=== PATIENT | female | born 1945 | race Caucasian/White ===

== ENCOUNTER 2020-01-06 15:39 | Outpatient (CLI) | payer MEDICARE, SELFPAY ==
--- NOTE | ~2020-01-06 | MM_ITS ---
EXAMINATION: MM screening eleno BI w tena HISTORY: Screening TECHNIQUE: Craniocaudal and mediolateral oblique 3-D tomosynthesis images were obtained and synthetic 2-D images were generated. CAD analysis was submitted and interpreted. COMPARISON: 10/11/2009 BREAST PARENCHYMAL COMPOSITION: The breasts are heterogeneously dense, which may obscure small masses . FINDINGS: There is a focal asymmetry superiorly in the right breast on MLO view. There is a region of pleomorphic calcifications in the upper outer quadrant of the left breast which are new. There is a second group of clustered pleomorphic calcifications in the region of the axillary tail overlying the pectoralis muscle on the MLO view. IMPRESSION: 1. New focal right breast asymmetry and clusters of calcifications in the left breast. 2. Additional mammographic views including spots, spot magnification views and exaggerated CC views a nd possible breast ultrasound are recommended. BI-RADS Category 0: Incomplete: Needs additional imaging evaluation. Reviewed, dictated and finalized at location A. IMPRESSION: 1. New focal right breast asymmetry and clusters of calcifications in the left breast. 2. Additional mammographic views including spots, spot magnification views and exaggerated CC views and possible breast ultrasound are recommended. BI-RADS Category 0: Incomplete: Needs additional imaging evaluation.
== END 2020-01-06 15:40 | disposition home or self-care (01) ==
LOC: ANHIMG 15:42
PROVIDERS: PCP Internal Medicine; Visit Provider Internal Medicine
DX: Z12.31 Encounter for screening mammogram for malignant neoplasm of breast (principal); R92.8 Other abnormal and inconclusive findings on diagnostic imaging of breast
CPT/HCPCS: 77063; 77067

== ENCOUNTER 2020-01-12 11:54 | Outpatient (CLI) | payer MEDICARE, SELFPAY ==
--- NOTE | ~2020-01-12 | MMUS_ITS ---
EXAMINATION: MM diagnostic mammo BI, US breast LT complete HISTORY: New focal right breast mammographic asymmetry and clusters of calcifications in left breast TECHNIQUE: Additional 3-D tomosynthesis images of both breasts were performed and synthetic 2-D image s were generated. Magnification views of left breast. CAD analysis was submitted and interpreted. Hig h resolution breast ultrasound was performed. COMPARISON: 01/06/2020 bilateral digital screening mammogram BREAST PARENCHYMAL COMPOSITION: There are scattered areas of fibroglandular density. FINDINGS: MAMMOGRAPHIC FINDINGS: The focal asymmetry reported in the right superior breast on MLO view of 01/06/2020 is not confirmed o n these supplemental right mammographic views. There are 2 indeterminate clusters of grouped microcalcifications in the upper outer quadrant of the left breast which are suspicious. Left breast ultrasound examination correlation was performed. No suspicious mass or architectural distortion is noted otherwise. ULTRASOUND: At 2:00 7 cm from the nipple there are two contiguous approximately 4.5 and 3.5 mm masses with irregu lar margins. Ultrasound guided biopsy is recommended. IMPRESSION: 1. Two contiguous 4.5 and 3.5 mm left breast 2:00 masses are noted. 2. Two suspicious clusters of grouped microcalcifications in the upper outer quadrant of the left jaziel ast 3. Ultrasound guided biopsy of the contiguous masses at left breast 2:00 is recommended. Post-biopsy mammogram should be performed, and stereotactic biopsy of the two clusters of microcalcifications sh ould be performed (although the ultrasound guided biopsy may be sufficient for one of the clusters of microcalcifications if the ultrasound biopsy marker is noted in that cluster of microcalcifications) . BI-RADS category 4, suspicious findings The report and ultrasound-guided and stereotactically guided biopsy recommendations were left on the voicemail at [phone] on 01/13/2020 at 1135 hours Reviewed, dictated and finalized at location A. IMPRESSION: 1. Two contiguous 4.5 and 3.5 mm left breast 2:00 masses are noted. 2. Two suspicious clusters of grouped microcalcifications in the upper outer qu adrant of the left breast 3. Ultrasound guided biopsy of the contiguous masses at left breast 2:00 is rec ommended. Post-biopsy mammogram should be performed, and stereotactic biopsy o f the two clusters of microcalcifications should be performed (although the ult rasound guided biopsy may be sufficient for one of the clusters of microcalcifi cations if the ultrasound biopsy marker is noted in that cluster of microcalcif ications). BI-RADS category 4, suspicious findings The report and ultrasound-guided and stereotactically guided biopsy recommendat ions were left on the voicemail at [phone] on 01/13/2020 at 1135 hours IMPRESSION: 1. Two contiguous 4.5 and 3.5 mm left breast 2:00 masses are noted. 2. Two suspicious clusters of grouped microcalcifications in the upper outer qu adrant of the left breast 3. Ultrasound guided biopsy of the contiguous masses at left breast 2:00 is rec ommended. Post-biopsy mammogram should be performed, and stereotactic biopsy o f the two clusters of microcalcifications should be performed (although the ult rasound guided biopsy may be sufficient for one of the clusters of microcalcifi cations if the ultrasound biopsy marker is noted in that cluster of microcalcif ications). BI-RADS category 4, suspicious findings The report and ultrasound-guided and stereotactically guided biopsy recommendat ions were left on the voicemail at [phone] on 01/13/2020 at 1135 hours
== END 2020-01-12 11:55 | disposition home or self-care (01) ==
LOC: ANHIMG 11:57
PROVIDERS: PCP Internal Medicine; Visit Provider Internal Medicine
DX: R92.8 Other abnormal and inconclusive findings on diagnostic imaging of breast (principal)
CPT/HCPCS: 76641; 77066

== ENCOUNTER 2021-12-21 10:42 | Emergency (ER) | payer MEDICARE, SELFPAY ==
--- NOTE | ~2021-12-21 | XR_ITS ---
XR hip LT 2V w AP pelvis 12/21/2021 11:12 Indication: Left hip pain Procedure: AP pelvis and 2 views left hip Comparison: No prior studies for comparison. Findings: No fracture, subluxation or dislocation. Pelvic rings are intact. Sacral foramen are symmet justo. There is mild osteoarthritis of the hips. No significant soft tissue abnormality. Impression: 1: No acute fracture. Reviewed, dictated and finalized at location A. Impression: 1: No acute fracture.
[2021-12-21 10:50] VITALS: BP 138/65; PULSE 76; RESP 20; TEMP 36.8; O2SAT 99
--- NOTE | 2021-12-21 10:57 | ED.LOWEXIN ---
HPI - Extremity Injury (Lower) General Chief Complaint: Extremity Problem,Nontraumatic Stated Complaint: left hip pain Time Seen by Provider: 12/21/21 10:58 History of Present Illness HPI Narrative: Carito Odom is a 76 yo female with PMH anxiety, high cholesterol, HTN, chronic pain, comes with complaints of left hip pain that started a few months ago and has gotten worse and is starting to radiate down into her leg Patient has chronic pain from a fall on her buttocks a couple years ago; she states she has new primary care physician that starts in February Dr. Brandt, states she is currently taking her high blood pressure and cholesterol medication and using gabapentin for pain, but this pain is on top of her chronic back pain Related Data Home Medications Medication Instructions Recorded Confirmed alprazolam 1 mg tablet 1 mg DIRECTED 12/21/21 12/21/21 atorvastatin 40 mg tablet 40 mg DIRECTED 12/21/21 12/21/21 gabapentin 300 mg capsule 300 mg PO DIRECTED 12/21/21 12/21/21 losartan 50 mg-hydrochlorothiazide 1 tablet DIRECTED 12/21/21 12/21/21 12.5 mg tablet Allergies Allergy/AdvReac Type Severity Reaction Status Date / Time Penicillins Allergy Unknown Verified 08/28/09 14:12 Review of Systems Review of Systems: CONSTITUTIONAL: Denies fever, chills, sweats. EYES: Denies visual changes, redness, discharge. ENT: Denies rhinorrhea, congestion, sore throat, otalgia. CARDIOVASCULAR: Denies chest pain, palpitations, edema. RESPIRATORY: Denies dyspnea, wheezing, cough GASTROINTESTINAL: Denies abdominal pain, nausea, vomiting, diarrhea. GENITOURINARY: Denies dysuria, hematuria, abnormal discharge SKIN: Denies rash or itching. NEUROLOGIC: Denies numbness, or focal weakness. PSYCHIATRIC: Denies anxiety or depression. Left hip pain that radiates into leg that has been going on for months PMFSH Past Medical History Medical History Anxiety Chronic back pain High cholesterol Hypertension Social History Social History (Updated 12/21/21 @ 11:06 by Karma Poon CNP) Smoking packs per day: 0.5 Smoking cigarettes per day: 10.0 Smoking status: Current every day smoker Tobacco type: cigarettes Alcohol intake: former Comments At time of signature, I agree with nursing past medical, surgical, social and family history. There is no relevant family history pertinent to the presenting complaint. Exam Narrative: GENERAL: This is a well-nourished, thin frail patient, in mild distress. HEAD: normocephalic, atraumatic. EYES:. Sclera clear/white. Vision is grossly intact. EARS: External ears normal, Hearing grossly intact. NOSE: External nose normal without nasal discharge, nares without redness, no rhinorrhea. THROAT: Mucous membranes moist NECK: Neck supple, non-tender CARDIOVASCULAR: Regular rate and rhythm without murmurs, gallops, or rubs. RESPIRATORY: Diminished to auscultation. Breath sounds equal bilaterally. No wheezes, rales, or rhonchi. GASTROINTESTINAL: Not done SKIN: warm, intact with no suspicious lesions or rash, good texture and turgor. NEURO: awake, alert, and oriented to person, place and time. There were no obvious focal neurologic abnormalities. Steady gait EXTREMITIES: Normal range of motion. Indicates pain in her left hip radiates into her leg, demonstrates good range of motion BACK: Nontender without deformity Course Course Emergency Course: Patient here with complaints of hip pain that radiates into the leg Patient has underlying chronic back pain that she is being treated for with gabapentin X-ray of left hip shows no acute fracture subluxation or dislocation is intact, sacral forearm ; mild osteoarthritis of hips Given low-dose muscle relaxant and some steroids Level of Care: Express Care Visit Vital Signs Vital signs: Vital Signs Temperature 98.3 F 12/21/21 10:50 Pulse Rate 76 12/21/21 10:50 Respiratory
== END 2021-12-21 11:55 | disposition home or self-care (01) ==
PROVIDERS: Emergency Provider Nurse Practitioner
DX: M25.552 Pain in left hip (principal); F17.210 Nicotine dependence, cigarettes, uncomplicated; E78.00 Pure hypercholesterolemia, unspecified; I10 Essential (primary) hypertension; F41.9 Anxiety disorder, unspecified
CPT/HCPCS: 73502; 99213; G0463

== ENCOUNTER 2022-02-17 22:31 | Inpatient (IN) | payer MEDICARE, MEDICAID, SELFPAY ==
[2022-02-17] VITALS (11 sets, daily range): BP systolic 112–159; BP diastolic 69–87; PULSE 56–87; RESP 19–24; TEMP 36.6; O2SAT 92–99
--- NOTE | ~2022-02-17 | XR_ITS ---
EXAMINATION: XR chest 2V DATE: 02/20/2022 10:27 INDICATION: Cough. Decreased left lung sounds. TECHNIQUE: Frontal and lateral views of the chest were obtained. COMPARISON: Chest 2 views 02/17/2022 FINDINGS: There is blunting of posterior left costophrenic angle. There is mild scarring at the lung apices. No pneumothorax. The heart size is normal. There is mild chronic anterior wedging of multiple midthoracic vertebral bodies. IMPRESSION: 1. Stable blunting of left posterior costophrenic angle, consistent with scarring versus tiny pleural effusion. Reviewed, dictated and finalized at location A. IMPRESSION: 1. Stable blunting of left posterior costophrenic angle, consistent with scarri ng versus tiny pleural effusion.
--- NOTE | ~2022-02-17 | XR_ITS ---
EXAMINATION: XR chest 2V Exam Date/Time: 02/17/2022 23:00 CDT HISTORY: cough, COPD Comparison: 08/26/2018. RESULT: Lines, tubes, and devices: None. Lungs and pleura: Similar mild bilateral peripheral lower lung reticulonodular opacities. Emphysemat ous change. Cardiomediastinal silhouette: Stable. Other: No acute osseous or upper abdominal finding. IMPRESSION: Pulmonary opacities may represent mild bronchiolitis, as can be seen with atypical infection, asthma, aspiration, and small airways disease. Reviewed, dictated and finalized at location K. IMPRESSION: Pulmonary opacities may represent mild bronchiolitis, as can be seen with atypi jerry infection, asthma, aspiration, and small airways disease.
--- NOTE | 2022-02-17 22:35 | ECG_ITS ---
Measurements Intervals [place] Rate: 77 P: 66 MI: 154 QRS: 44 QRSD: 80 T: 69 QT: 406 QTc: 459 Interpretive Statements SINUS RHYTHM BASELINE ARTIFACT- I, II, III, AVR, AVL, V5-V6 NORMAL ECG NO PREVIOUS ECG AVAILABLE FOR COMPARISON Electronically Signed On 02-18-2022 8:30:07 CDT by Fazal Quintero D.O.
--- NOTE | 2022-02-17 22:57 | PC.NURSE ---
O2 sat down to 92% and labored breathing with just getting from W/C onto stretcher. placed on O2@2L for comfort until Nebs can be given. ERP made aware
[2022-02-17 23:08] LABS: Basophils Absolute Auto 0.1 K/mm3 (0.0-0.1); Eosinophils Absolute Auto 1.2 K/mm3 (0-0.3); Hematocrit 39.3 % (37.0-47.0); Hemoglobin 12.8 g/dL (12.0-15.0); Immature Granulocyte Absolute 0.02 K/mm3 (0.00-0.031); Immature Granulocyte Percent A 0.3 % (0-0.5); Lymphocytes Percent Auto 31.1 % (18.3-44.2); Mean Corpuscular HGB Conc 32.6 g/dl (32-36); Mean Corpuscular Hemoglobin 33.2 pg (26-34); Mean Corpuscular Volume 102.1 fl (80-100); Monocytes Absolute Auto 0.9 K/mm3 (0.1-0.6); Monocytes Percent Auto 12.9 % (2.6-8.5); Neutrophils Absolute Auto 2.5 K/mm3 (1.3-6.7); Neutrophils Percent Auto 36.7 % (45.5-73.1); Platelet Count Result 224 k/mm3 (150-375); Red Blood Count 3.85 M/mm3 (4.2-5.4); Red Cell Distribution Width 14.4 % (11.5-14.5); White Blood Count 6.8 K/mm3 (4.5-10.0)
[2022-02-17 23:20] LABS: Alanine Aminotransferase 18 U/L (6-35); Alkaline Phosphatase 80 U/L (38-126); Anion Gap 6 mmol/L (8-16); Aspartate Amino Transferase 27 U/L (14-36); Bilirubin,Total 0.5 mg/dL (0.2-1.3); Blood Urea Nitrogen 15 mg/dL (7-17); Calcium 9.2 mg/dL (8.4-10.2); Carbon Dioxide 25 mmol/L (22-30); Chloride 106 mmol/L (98-107); Estimated CRCL calculation 37 ml/min; Estimated Glomerular Filt Rate > 60; Glucose 94 mg/dL (65-110); Potassium 3.7 mmol/L (3.4-5.0); Sodium 137 mmol/L (137-145)
[2022-02-17] MEDS: IPRATROPIUM BR 0.02% INH SOLN 0.5 MG/2.5 ML VIAL 1.5 MG INHALATION (23:34)
[2022-02-17] MEDS: ALBUTEROL SULFATE NEB 2.5 MG/3 ML INH 15 MG INHALATION (23:35)
[2022-02-17 23:46] LABS: Base Excess ABG -0.3 mEq/l (+/-2.0); Carboxyhemoglobin 0.1 % THb (0-2.0); Fractional Inspired Oxygen 21 %; Methemoglobin ABG 0.3 %THb (0-1.5); Oxyhemoglobin 97.7 % THb (90.0-100.0); PCO2 ABG 43.7 mmHg (35.0-45.0); PO2 ABG 156.1 mmHg (80.0-100.0); Reduced Hemoglobin 1.9 %THb (0-5.0); Total Hemoglobin 12.9 g/dL (12.0-18.0); pH ABG 7.376 (7.350-7.450)
[2022-02-17 23:51] LABS: Device ROOM AIR; Modified Allen's Test Pass; Site Drawn RIGHT RADIAL
[2022-02-17] MEDS: methylPREDNISolone SOD SUCC 125 MG VIAL IV PUSH (23:52)
[2022-02-18] VITALS (18 sets, daily range): BP systolic 106–132; BP diastolic 43–68; PULSE 52–95; RESP 15–21; TEMP 35.6–36.7; O2SAT 88–100; BMI 19.3
--- NOTE | 2022-02-18 00:12 | ED.SOB ---
HPI - SOB/Dyspnea General Chief Complaint: Shortness of Breath/Dyspnea Stated Complaint: SOB, lethargy Time Seen by Provider: 02/17/22 22:57 History of Present Illness HPI Narrative: Patient is a 77-year-old female who presents ER with new cough. Daughters became concerned. Cough newly productive and worsened over the last 2 days. No fevers or chills or sweats. Patient is acting more fatigued and sleeping more during the day. She has COPD but does not take any medications. She is not oxygen dependent. No chest pain or chest pressure. No recent falls. Family has noticed increased wheezing. Related Data Home Medications Medication Instructions Recorded Confirmed alprazolam 1 mg tablet 1 mg PO HS 12/21/21 02/18/22 atorvastatin 40 mg tablet 40 mg PO HS 12/21/21 02/18/22 gabapentin 300 mg capsule 600 mg PO HS 12/21/21 02/18/22 losartan 50 mg-hydrochlorothiazide 1 tablet PO HS 12/21/21 02/18/22 12.5 mg tablet escitalopram oxalate 5 mg tablet 5 mg PO HS 02/18/22 02/18/22 Allergies Allergy/AdvReac Type Severity Reaction Status Date / Time Penicillins Allergy Unknown Verified 08/28/09 14:12 Review of Systems Review of Systems: All systems reviewed & are unremarkable except as noted in HPI and below Constitutional: Constitutional: Denies chills, Reports fatigue and Denies fever(s) ENT: Reports nasal congestion and Denies sore throat Cardiovascular: Cardiovascular: Denies chest pain, Denies rapid heart rate and Denies radiating jaw, neck or arm pain Respiratory: Respiratory: Reports cough, Denies dyspnea and Reports wheezing Gastrointestinal: Gastrointestinal: Denies abdominal pain, Denies nausea and Denies vomiting Genitourinary: Genitourinary: Denies nocturia and Denies dysuria [facility] Past Medical History Medical History Anxiety Chronic back pain High cholesterol Hypertension Social History Social History (Updated 12/21/21 @ 11:06 by Karma Poon CNP) Smoking packs per day: 0.5 Smoking cigarettes per day: 10.0 Years smoked: 60 Smoking pack-years: 30.00 Smoking status: Current every day smoker Tobacco type: cigarettes Alcohol intake: current Substance use: never Other substance usage details: 1/m Spiritual care concerns: No Exam Narrative: GENERAL: Well-appearing, well-nourished, and in no acute distress. HEAD: Normocephalic, atraumatic. EYES: PERRL and EOMI. CHEST: Diffuse wheezing/rhonchi with expiration. No respiratory distress. HEART: Regular rate and rhythm. Normal peripheral pulses. ABDOMEN: Soft, nontender, nondistended. EXTREMITIES: Normal range of motion. No edema. SKIN: Warm, dry, no rash. NEURO: Alert and oriented x3. PSYCH: Normal mood and affect. Course Course Emergency Course: Patient hypoxic at 88% after nebulizer. Still has some scattered coarse lung sounds. Patient requires 4 L of nasal cannula oxygen to get up into the mid 90s. We will plan admission for observation. We will add on a COVID swab. Vital Signs Vital signs: Vital Signs Temperature 97.9 F 02/17/22 22:34 Pulse Rate 74 02/17/22 22:34 Respiratory Rate 22 H 02/17/22 22:34 Blood Pressure 112/87 02/17/22 22:34 Pulse Oximetry 96 02/17/22 22:34 Oxygen Delivery Room Air 02/17/22 22:34 Temperature 96.0 F L 02/18/22 05:57 Pulse Rate 63 02/18/22 05:57 Respiratory Rate 18 02/18/22 05:57 Blood Pressure 120/43 L 02/18/22 05:57 Pulse Oximetry 100 02/18/22 05:57 Oxygen Delivery Nasal Cannula 02/18/22 02:54 Oxygen Flow Rate 4 02/18/22 02:54 MDM - SOB/Dyspnea Lab Data Result diagrams: 02/17/22 22:59 02/17/22 22:59 Labs: Lab Results 02/17/22 02/17/22 02/17/22 Range/Units 22:59 22:59 23:27 WBC 6.8 (4.5-10.0) K/mm3 RBC 3.85 L (4.2-5.4) M/mm3 Hgb 12.8 (12.0-15.0) g/dL Hct 39.3 (37.0-47.0) % MCV 102.1 H (80-100) fl MCH 33.2 (26-
[2022-02-18 03:39] LABS: SARS-CoV-2 RNA PCR Negative
--- NOTE | 2022-02-18 04:20 | PC.NURSE ---
Called lab to add on FLU PCR, spoke with Marli, she stated she will add it on.
[2022-02-18 04:21] LABS: Influenza A QL RT-PCR Negative (Negative); Influenza B QL RT-PCR Negative (Negative)
--- NOTE | 2022-02-18 05:18 | ADMGEN ---
This patient, Carito Odom, was admitted to [facility] Surg Room 321-02. Patient/family oriented to hospital policies and general routines including ID bracelet, bed and alarms, visiting hours, pain management, procedures, bathroom and other care routines, personal items, smoking policy, room service/diet, and visiting hours. Information on how to activate the Rapid Response Team has been discussed. Patient/Family are encouraged to report perceived risks to care and to ask questions if they do not understand what they are told or what they should do.
[2022-02-18] MEDS: methylPREDNISolone SOD SUCC 125 MG VIAL 60 MG IV PUSH ×3 (05:49→17:58)
[2022-02-18 07:39] LABS: Hematocrit 37.2 % (37.0-47.0); Hemoglobin 12.1 g/dL (12.0-15.0); Mean Corpuscular HGB Conc 32.5 g/dl (32-36); Mean Corpuscular Hemoglobin 33.3 pg (26-34); Mean Corpuscular Volume 102.5 fl (80-100); Mean Platelet Volume 10.2 fl (7.4-10.4); Platelet Count Result 209 k/mm3 (150-375); Red Blood Count 3.63 M/mm3 (4.2-5.4); Red Cell Distribution Width 14.1 % (11.5-14.5); White Blood Count 6.5 K/mm3 (4.5-10.0)
[2022-02-18 07:49] LABS: Anion Gap 8 mmol/L (8-16); Blood Urea Nitrogen 16 mg/dL (7-17); Calcium 9.2 mg/dL (8.4-10.2); Carbon Dioxide 26 mmol/L (22-30); Chloride 103 mmol/L (98-107); Estimated CRCL calculation 33 ml/min; Estimated Glomerular Filt Rate 54; Glucose 186 mg/dL (65-110); Potassium 3.5 mmol/L (3.4-5.0); Sodium 137 mmol/L (137-145)
--- NOTE | 2022-02-18 10:29 | PCRCNOTE ---
Window of time for administration has passed. See next scheduled administration.
--- NOTE | 2022-02-18 11:36 | PM.IMHP ---
H&P: HPI History of Present Illness Date/Time: 02/18/22 11:36 Chief Complaint: shortness of breath Narrative: date of service: 02/18/2022 Carito Odom is a 77-year-old female with a history of anxiety, hypertension, hyperlipidemia, breast cancer s/p chemotherapy, radiation, and mastectomy with associated left upper extremity neuropathy, COPD not maintained on any inhalers, and tobacco abuse who presented to the emergency department on 02/18/2022 due to shortness of breath. The patient states that for the past 3 days she has had a pretty bad cough that she describes as hacking in nature. She has not had sputum production. Yesterday she felt extremely fatigued. She fell asleep and her daughter's who are visiting from out of town noticed that she was very short of breath while she was sleeping and they told her she was rattling. The patient states she did not feel that bad and she would not have come for evaluation, however her daughter's convinced her to seek medical care. The patient denies shortness of breath, GARCIA, conversational dyspnea. She has no difficulty completing her daily tasks, but admits that if she were to walk up a flight of stairs this would cause some shortness of breath. She denies any recent cold or flu symptoms. Specifically denies nasal congestion, sore throat, fever, chills, body aches. She does endorse intermittent rhinorrhea for several months. Denies any recent sick contacts. She completed COVID vaccine with 2 boosters and influenza vaccine. States that she does not use any inhalers and does not even have a rescue inhaler. On presentation to the ED, she was mildly tachypneic with additional vital signs stable, she was afebrile, CBC and BMP unremarkable, COVID and influenza vaccine negative, and chest x-ray showed pulmonary opacities which may represent mild bronchiolitis, asthma, aspiration, small airway disease. She is being admitted to the hospitalist service. supervising physician for this history and physical is Dr. Jair Ocasio. Review of Systems Review of Systems: All systems reviewed with pertinent positives and negatives as per HPI. Patient additionally denies abdominal pain, nausea, vomiting, dizziness, lightheadedness, weight loss, dysuria, hematuria, melena, hematochezia, weakness. [facility] Past Medical History Medical History (Updated 02/18/22 @ 11:50 by Estee Jon PA-C) Anxiety Breast cancer Chronic back pain COPD (chronic obstructive pulmonary disease) High cholesterol Hypertension Neuropathy Tobacco abuse Surgical History Surgical History (Updated 02/18/22 @ 11:48 by Estee Jon PA-C) History of left mastectomy Family History Family History Mother Breast cancer Father Diabetes mellitus Social History Social History (Updated 02/18/22 @ 11:50 by Estee Jon PA-C) Social History: Lives at home with Independent with ADLs Retired No current PCP - Prior PCP (Dr. Chavez) retired in November and has not established elsewhere yet POA: Rhona (daughter) Code: full Smoking packs per day: 0.5 Smoking cigarettes per day: 10.0 Years smoked: 60 Smoking pack-years: 30.00 Smoking status: Current every day smoker Tobacco type: cigarettes Alcohol intake: never Substance use: never Spiritual care concerns: No Meds Home Medications and Allergies Home Medications Medication Instructions Recorded Confirmed Type alprazolam 1 mg tablet 1 mg PO HS 12/21/21 02/18/22 History atorvastatin 40 mg tablet 40 mg PO HS 12/21/21 02/18/22 History gabapentin 300 mg capsule 600 mg PO HS 12/21/21 02/18/22 History losartan 50 mg-hydrochlorothiazide 1 tablet PO HS 12/21/21 02/18/22 History 12.5 mg tablet escitalopram oxalate 5 mg tablet 5 mg PO HS 02/18/22 02/18/22 History Allergies Allergy/AdvReac Type Severity Reaction Status Date / Time Penicillins Allergy Unkn
[2022-02-18] MEDS: IPRATROPIUM BR 0.02% INH SOLN 0.5 MG/2.5 ML VIAL INHALATION ×2 (15:17→20:15)
[2022-02-18] MEDS: ALBUTEROL SULFATE NEB 2.5 MG/3 ML INH 5 MG INHALATION ×2 (15:17→20:15)
[2022-02-18] MEDS: ALPRAZolam (*CRX) 0.5 MG TABLET 1 MG PO (21:28)
[2022-02-18] MEDS: GABAPENTIN 300 MG CAPSULE 600 MG PO (21:29)
[2022-02-18] MEDS: ATORVASTATIN 40 MG TABLET PO (21:29)
[2022-02-18] MEDS: guaiFENesin 12 HR 600 MG TABCR PO (21:29)
[2022-02-19] VITALS (20 sets, daily range): BP systolic 95–120; BP diastolic 41–54; PULSE 63–88; RESP 13–20; TEMP 36.3–37; O2SAT 88–100
[2022-02-19] MEDS: IPRATROPIUM BR 0.02% INH SOLN 0.5 MG/2.5 ML VIAL INHALATION ×4 (02:25→20:00)
[2022-02-19] MEDS: ALBUTEROL SULFATE NEB 2.5 MG/3 ML INH 5 MG INHALATION ×4 (02:25→20:00)
[2022-02-19] MEDS: methylPREDNISolone SOD SUCC 125 MG VIAL 60 MG IV PUSH ×2 (05:38)
[2022-02-19 05:56] LABS: Hematocrit 31.9 % (37.0-47.0); Hemoglobin 10.5 g/dL (12.0-15.0); Mean Corpuscular HGB Conc 32.9 g/dl (32-36); Mean Corpuscular Hemoglobin 33.1 pg (26-34); Mean Corpuscular Volume 100.6 fl (80-100); Mean Platelet Volume 10.6 fl (7.4-10.4); Platelet Count Result 191 k/mm3 (150-375); Red Blood Count 3.17 M/mm3 (4.2-5.4); Red Cell Distribution Width 13.6 % (11.5-14.5); White Blood Count 10.9 K/mm3 (4.5-10.0)
[2022-02-19 06:04] LABS: Hemoglobin A1C 5.3 % (<5.7)
[2022-02-19 06:23] LABS: Anion Gap 8 mmol/L (8-16); Blood Urea Nitrogen 26 mg/dL (7-17); Calcium 8.6 mg/dL (8.4-10.2); Carbon Dioxide 22 mmol/L (22-30); Chloride 96 mmol/L (98-107); Estimated CRCL calculation 36 ml/min; Estimated Glomerular Filt Rate > 60; Glucose 157 mg/dL (65-110); Potassium 3.7 mmol/L (3.4-5.0); Sodium 126 mmol/L (137-145)
[2022-02-19] MEDS: ENOXAPARIN 40 MG/0.4 ML SYRINGE SUB-Q (08:55)
[2022-02-19] MEDS: guaiFENesin 12 HR 600 MG TABCR PO ×2 (08:55→21:26)
--- NOTE | 2022-02-19 10:45 | P.PNIM_ITS ---
Progress Note: A&P Assessment and Plan (1) COPD exacerbation: Code(s): J44.1 - Chronic obstructive pulmonary disease with (acute) exacerbation Status: Acute Assessment and Plan: patient with untreated COPD presented with wheezing, consistent with COPD exacerbation * continue IV Solu-Medrol, wean to 40 mg q8h * albuterol and ipratropium nebs q6h * continue IV azithromycin in light of increased sputum production * supportive care. begin expectorants and incentive spirometry * she will need outpatient follow-up for treatment of COPD. May benefit from pulmonology referral. * will need scheduled long-acting inhalers (2) Hypoxia: Code(s): R09.02 - Hypoxemia Status: Acute Assessment and Plan: patient hypoxic this morning down to 88%. secondary to above * initially required 4 L supplemental oxygen * O2 requirement is improving, currently on 1 L O2 and maintaining adequate O2 sats * wean oxygen as tolerated and monitor O2 sats closely (3) Abnormal CXR: Code(s): R93.89 - Abnormal findings on diagnostic imaging of other specified body structures Status: Acute Assessment and Plan: CXR on presentation showed pulmonary opacities which may represent mild bronchiolitis which may be due to atypical infection vs asthma vs aspiration vs small airway disease * patient is afebrile, no leukocytosis prior to starting IV steroids, no additional clinical signs to suggest acute infection. aspiration is unlikely. * patient clinically improving. May consider repeat CXR as an outpatient to reassess findings (4) Hypertension: Code(s): I10 - Essential (primary) hypertension Status: Acute Assessment and Plan: blood pressure has been running low. last BP 107/46 * holding home losartan -hydrochlorothiazide at this time to avoid hypotension * check orthostatic vital signs * patient asymptomatic * monitor BP trends closely (5) Anxiety: Code(s): F41.9 - Anxiety disorder, unspecified Status: Acute Assessment and Plan: no acute issues at this time * continue alprazolam at night (6) Tobacco abuse: Code(s): Z72.0 - Tobacco use Status: Acute Assessment and Plan: patient smokes a half pack a day * declined need for nicotine patch * educated on smoking cessation. continue to reinforce (7) Hyponatremia: Code(s): E87.1 - Hypo-osmolality and hyponatremia Status: Acute Assessment and Plan: sodium declined to 126 today * implement fluid restriction diet * recheck sodium this afternoon and continue to follow trend * obtain urine electrolytes Subjective Date/time seen: 02/19/22 10:45 Interval history: Date of service: 02/19/2022 Carito Odom is a 77-year-old female with a history of anxiety, hypertension, hyperlipidemia, breast cancer s/p chemotherapy, radiation, and mastectomy with associated left upper extremity neuropathy, COPD not maintained on any inhalers, and tobacco abuse? who is seen in follow-up for COPD exacerbation she feels better today. She states her breathing is a lot better. Her cough has improved and she denies sputum production. She denies wheezing. She states she is feeling nearly back to her usual state of health. She has been up and ambulating around the room without difficulty. Denies dizziness, lightheadedness, weakness. No GARCIA. Denies urinary symptoms. Reports last bowel movement was 2 days ago. Reports appetite is fair. Denies excess fl
--- NOTE | 2022-02-19 10:45 | PM.IMPN ---
Progress Note: A&P Assessment and Plan (1) COPD exacerbation: Code(s): J44.1 - Chronic obstructive pulmonary disease with (acute) exacerbation Status: Acute Assessment and Plan: patient with untreated COPD presented with wheezing, consistent with COPD exacerbation continue IV Solu-Medrol, wean to 40 mg q8h albuterol and ipratropium nebs q6h continue IV azithromycin in light of increased sputum production supportive care. begin expectorants and incentive spirometry she will need outpatient follow-up for treatment of COPD. May benefit from pulmonology referral. will need scheduled long-acting inhalers (2) Hypoxia: Code(s): R09.02 - Hypoxemia Status: Acute Assessment and Plan: patient hypoxic this morning down to 88%. secondary to above initially required 4 L supplemental oxygen O2 requirement is improving, currently on 1 L O2 and maintaining adequate O2 sats wean oxygen as tolerated and monitor O2 sats closely (3) Abnormal CXR: Code(s): R93.89 - Abnormal findings on diagnostic imaging of other specified body structures Status: Acute Assessment and Plan: CXR on presentation showed pulmonary opacities which may represent mild bronchiolitis which may be due to atypical infection vs asthma vs aspiration vs small airway disease patient is afebrile, no leukocytosis prior to starting IV steroids, no additional clinical signs to suggest acute infection. aspiration is unlikely. patient clinically improving. May consider repeat CXR as an outpatient to reassess findings (4) Hypertension: Code(s): I10 - Essential (primary) hypertension Status: Acute Assessment and Plan: blood pressure has been running low. last BP 107/46 holding home losartan -hydrochlorothiazide at this time to avoid hypotension check orthostatic vital signs patient asymptomatic monitor BP trends closely (5) Anxiety: Code(s): F41.9 - Anxiety disorder, unspecified Status: Acute Assessment and Plan: no acute issues at this time continue alprazolam at night (6) Tobacco abuse: Code(s): Z72.0 - Tobacco use Status: Acute Assessment and Plan: patient smokes a half pack a day declined need for nicotine patch educated on smoking cessation. continue to reinforce (7) Hyponatremia: Code(s): E87.1 - Hypo-osmolality and hyponatremia Status: Acute Assessment and Plan: sodium declined to 126 today implement fluid restriction diet recheck sodium this afternoon and continue to follow trend obtain urine electrolytes Subjective Date/time seen: 02/19/22 10:45 Interval history: Date of service: 02/19/2022 Carito Odom is a 77-year-old female with a history of anxiety, hypertension, hyperlipidemia, breast cancer s/p chemotherapy, radiation, and mastectomy with associated left upper extremity neuropathy, COPD not maintained on any inhalers, and tobacco abuse? who is seen in follow-up for COPD exacerbation she feels better today. She states her breathing is a lot better. Her cough has improved and she denies sputum production. She denies wheezing. She states she is feeling nearly back to her usual state of health. She has been up and ambulating around the room without difficulty. Denies dizziness, lightheadedness, weakness. No GARCIA. Denies urinary symptoms. Reports last bowel movement was 2 days ago. Reports appetite is fair. Denies excess fluid intake. Reports drinking 1 cup of coffee and 1 cup of water today. Review of Systems Review of Systems: All systems reviewed & are unremarkable except as noted in HPI and below Exam Narrative: General: thin, well-appearing 77-year-old female, sitting up in bed, comfortable, NARD Neuro: awake, alert and oriented x4, speech clear, no focal neuro deficits noted HEENMT: normocephalic, atraumatic, EOMI, sclerae anicteric
[2022-02-19 13:29] LABS: Sodium 123 mmol/L (137-145)
[2022-02-19] MEDS: methylPREDNISolone SOD SUCC 40 MG VIAL IV PUSH ×2 (14:27→21:26)
[2022-02-19 16:13] LABS: Creatinine Urine 143.4 mg/dL
[2022-02-19 16:17] LABS: Sodium Urine Random < 5 meq/L
[2022-02-19] MEDS: SODIUM CHLORIDE 0.9% IV 250 ML 100 ML IV CONT (16:30)
[2022-02-19] MEDS: SODIUM CHLORIDE 0.9% IV 1,000 ML 75 ML IV CONT (18:54)
[2022-02-19 19:21] LABS: Sodium 126 mmol/L (137-145)
[2022-02-19] MEDS: ATORVASTATIN 40 MG TABLET PO (21:26)
[2022-02-19] MEDS: ALPRAZolam (*CRX) 0.5 MG TABLET 1 MG PO (21:26)
[2022-02-19] MEDS: GABAPENTIN 300 MG CAPSULE 600 MG PO (21:26)
[2022-02-20] VITALS (13 sets, daily range): BP systolic 114–120; BP diastolic 43–49; PULSE 71–80; RESP 14–18; TEMP 36.6–37.1; O2SAT 92–94
[2022-02-20 00:05] LABS: Sodium 123 mmol/L (137-145)
[2022-02-20] MEDS: IPRATROPIUM BR 0.02% INH SOLN 0.5 MG/2.5 ML VIAL INHALATION ×4 (02:02→20:54)
[2022-02-20] MEDS: ALBUTEROL SULFATE NEB 2.5 MG/3 ML INH 5 MG INHALATION ×4 (02:02→20:54)
[2022-02-20] MEDS: methylPREDNISolone SOD SUCC 40 MG VIAL IV PUSH ×3 (05:41→22:39)
[2022-02-20 05:58] LABS: Basophils Percent Auto 0.1 % (0.2-1.2); Hematocrit 29.5 % (37.0-47.0); Hemoglobin 10.1 g/dL (12.0-15.0); Immature Granulocyte Percent A 0.7 % (0-0.5); Lymphocytes Absolute Auto 0.62 K/mm3 (0.9-3.2); Lymphocytes Percent Auto 4.2 % (18.3-44.2); Mean Corpuscular HGB Conc 34.2 g/dl (32-36); Mean Corpuscular Hemoglobin 33.3 pg (26-34); Mean Corpuscular Volume 97.4 fl (80-100); Mean Platelet Volume 10.6 fl (7.4-10.4); Monocytes Absolute Auto 0.8 K/mm3 (0.1-0.6); Monocytes Percent Auto 5.4 % (2.6-8.5); Neutrophils Absolute Auto 13.1 K/mm3 (1.3-6.7); Neutrophils Percent Auto 89.6 % (45.5-73.1); Platelet Count Result 186 k/mm3 (150-375); Red Blood Count 3.03 M/mm3 (4.2-5.4); Red Cell Distribution Width 13.8 % (11.5-14.5); White Blood Count 14.6 K/mm3 (4.5-10.0)
[2022-02-20 06:29] LABS: Anion Gap 6 mmol/L (8-16); Blood Urea Nitrogen 31 mg/dL (7-17); Calcium 8.3 mg/dL (8.4-10.2); Carbon Dioxide 22 mmol/L (22-30); Chloride 97 mmol/L (98-107); Estimated CRCL calculation 33 ml/min; Estimated Glomerular Filt Rate 54; Glucose 133 mg/dL (65-110); Sodium 125 mmol/L (137-145)
[2022-02-20] MEDS: guaiFENesin 12 HR 600 MG TABCR PO ×2 (08:26→20:37)
[2022-02-20] MEDS: SODIUM CHLORIDE 0.9% IV 1,000 ML 75 ML IV CONT (08:26)
[2022-02-20] MEDS: ENOXAPARIN 40 MG/0.4 ML SYRINGE SUB-Q (08:26)
--- NOTE | 2022-02-20 09:56 | P.PNIM_ITS ---
Progress Note: A&P Assessment and Plan (1) COPD exacerbation: Code(s): J44.1 - Chronic obstructive pulmonary disease with (acute) exacerbation Status: Acute Assessment and Plan: patient with untreated COPD presented with wheezing, consistent with COPD exacerbation * continue IV Solu-Medrol, wean to 40 mg q12h * albuterol and ipratropium nebs q6h * continue IV azithromycin in light of increased sputum production * supportive care. expectorants and incentive spirometry * she will need outpatient follow-up for treatment of COPD. May benefit from pulmonology referral. * will need scheduled long-acting inhalers (2) Hypoxia: Code(s): R09.02 - Hypoxemia Status: Acute Assessment and Plan: patient hypoxic down to 88%. secondary to above * initially required 4 L supplemental oxygen * O2 requirement is improving, currently on 1 L O2 and maintaining adequate O2 sats * wean oxygen as tolerated and monitor O2 sats closely (3) Abnormal CXR: Code(s): R93.89 - Abnormal findings on diagnostic imaging of other specified body structures Status: Acute Assessment and Plan: CXR on presentation showed pulmonary opacities which may represent mild bronchiolitis which may be due to atypical infection vs asthma vs aspiration vs small airway disease * patient is afebrile, no leukocytosis prior to starting IV steroids, no additional clinical signs to suggest acute infection. aspiration is unlikely. patient is improving clinically * will obtain repeat CXR today given diminished lung sounds (4) Hypertension: Code(s): I10 - Essential (primary) hypertension Status: Acute Assessment and Plan: blood pressure has been running low. last BP 115/47 * holding home losartan-hydrochlorothiazide at this time to avoid hypotension * orthostatics negative * patient asymptomatic * monitor BP trends closely (5) Anxiety: Code(s): F41.9 - Anxiety disorder, unspecified Status: Acute Assessment and Plan: no acute issues at this time * continue alprazolam at night (6) Tobacco abuse: Code(s): Z72.0 - Tobacco use Status: Acute Assessment and Plan: patient smokes a half pack a day * declined need for nicotine patch * educated on smoking cessation. continue to reinforce (7) Hyponatremia: Code(s): E87.1 - Hypo-osmolality and hyponatremia Status: Acute Assessment and Plan: sodium down to 123. 136-137 at baseline. Patient is asymptomatic. * fluid restriction diet * continue IV fluids * urine sodium <5 * consult to nephrology. Recommendations appreciated. * trend sodium q4h Subjective Date/time seen: 02/20/22 09:56 Interval history: Date of service: 02/20/2022 Carito Odom is a 77-year-old female with a history of anxiety, hypertension, hyperlipidemia, breast cancer s/p chemotherapy, radiation, and mastectomy with associated left upper extremity neuropathy, COPD not maintained on any inhalers, and tobacco abuse? who is seen in follow-up for COPD exacerbation.She states she is breathing well today. She has infrequent cough that is not productive. She denies shortness of breath. No chest pain. Denies abdominal pain, cramping, diarrhea, nausea, vomiting, fever, chills, muscle weakness or cramping, confusion, headache, dizziness, lightheadedness. Review of Systems Review of Systems: All systems reviewed & are unremarkable except as noted in
--- NOTE | 2022-02-20 09:56 | PM.IMPN ---
Progress Note: A&P Assessment and Plan (1) COPD exacerbation: Code(s): J44.1 - Chronic obstructive pulmonary disease with (acute) exacerbation Status: Acute Assessment and Plan: patient with untreated COPD presented with wheezing, consistent with COPD exacerbation continue IV Solu-Medrol, wean to 40 mg q12h albuterol and ipratropium nebs q6h continue IV azithromycin in light of increased sputum production supportive care. expectorants and incentive spirometry she will need outpatient follow-up for treatment of COPD. May benefit from pulmonology referral. will need scheduled long-acting inhalers (2) Hypoxia: Code(s): R09.02 - Hypoxemia Status: Acute Assessment and Plan: patient hypoxic down to 88%. secondary to above initially required 4 L supplemental oxygen O2 requirement is improving, currently on 1 L O2 and maintaining adequate O2 sats wean oxygen as tolerated and monitor O2 sats closely (3) Abnormal CXR: Code(s): R93.89 - Abnormal findings on diagnostic imaging of other specified body structures Status: Acute Assessment and Plan: CXR on presentation showed pulmonary opacities which may represent mild bronchiolitis which may be due to atypical infection vs asthma vs aspiration vs small airway disease patient is afebrile, no leukocytosis prior to starting IV steroids, no additional clinical signs to suggest acute infection. aspiration is unlikely. patient is improving clinically will obtain repeat CXR today given diminished lung sounds (4) Hypertension: Code(s): I10 - Essential (primary) hypertension Status: Acute Assessment and Plan: blood pressure has been running low. last BP 115/47 holding home losartan-hydrochlorothiazide at this time to avoid hypotension orthostatics negative patient asymptomatic monitor BP trends closely (5) Anxiety: Code(s): F41.9 - Anxiety disorder, unspecified Status: Acute Assessment and Plan: no acute issues at this time continue alprazolam at night (6) Tobacco abuse: Code(s): Z72.0 - Tobacco use Status: Acute Assessment and Plan: patient smokes a half pack a day declined need for nicotine patch educated on smoking cessation. continue to reinforce (7) Hyponatremia: Code(s): E87.1 - Hypo-osmolality and hyponatremia Status: Acute Assessment and Plan: sodium down to 123. 136-137 at baseline. Patient is asymptomatic. fluid restriction diet continue IV fluids urine sodium <5 consult to nephrology. Recommendations appreciated. trend sodium q4h Subjective Date/time seen: 02/20/22 09:56 Interval history: Date of service: 02/20/2022 Carito Odom is a 77-year-old female with a history of anxiety, hypertension, hyperlipidemia, breast cancer s/p chemotherapy, radiation, and mastectomy with associated left upper extremity neuropathy, COPD not maintained on any inhalers, and tobacco abuse? who is seen in follow-up for COPD exacerbation.She states she is breathing well today. She has infrequent cough that is not productive. She denies shortness of breath. No chest pain. Denies abdominal pain, cramping, diarrhea, nausea, vomiting, fever, chills, muscle weakness or cramping, confusion, headache, dizziness, lightheadedness. Review of Systems Review of Systems: All systems reviewed & are unremarkable except as noted in HPI and below Exam Narrative: General: thin, well-appearing 77-year-old female, sitting up in bed, comfortable, NARD Neuro: awake, alert and oriented x4, speech clear, no focal neuro deficits noted HEENMT: normocephalic, atraumatic, EOMI, sclerae anicteric Respiratory: Faint expiratory wheezes, diminished breath sounds in left lung base, nonlabored breathing, able to speak in complete sentences Cardio: regular rate, regular rhythm with S1-S2 Abdomen: non
[2022-02-20 10:41] LABS: Sodium 127 mmol/L (137-145)
[2022-02-20 11:29] LABS: Thyroid Stimulating Hormone Reflex 0.099 uIU/mL (0.465-4.68)
[2022-02-20 16:07] LABS: Sodium 130 mmol/L (137-145)
--- NOTE | 2022-02-20 17:28 | PM.CNNEP ---
Assessment and Plan Assessment and plan (1) Hyponatremia: Code(s): E87.1 - Hypo-osmolality and hyponatremia Status: Acute Assessment and Plan: The patient has hyponatremia. Her sodium level was a little low 1 time in 2019 but otherwise was normal before she came in the hospital this time. There are several issues that could cause low sodium that are applicable to her. She is on Lexapro. She is also on hydrochlorothiazide. She does have a history of breast cancer, however she has had recent evaluation and felt not to have any recurrence at this point. Her chest x-ray is clear and her calcium level is not high. She might have been a little dehydrated on admission as is not unusual in people with COPD exacerbation. It seems that the sodium level improved with hydration. Other causes such as [employer] lesions are unlikely in her scenario. Consider CT brain if this is persistent. Her TSH is low. Free T4 is pending. If she has secondary hypothyroidism then we should do more investigation in to the pituitary. Adrenal insufficiency is always a possibility in specially those with a history of cancer. Will check a cortisol level. Will repeat a sodium level today to make sure that she is not correcting too quickly. Will check serum and urine osmolality. Will check an SPEP. Will also check cortisol level and another sodium level in the morning. (2) Tobacco abuse: Code(s): Z72.0 - Tobacco use Status: Acute Assessment and Plan: She was encouraged to quit. Consider Chantix or patches? (3) Hypertension: Code(s): I10 - Essential (primary) hypertension Status: Acute Assessment and Plan: Blood pressure is under good control. (4) Community acquired pneumonia: Code(s): J18.9 - Pneumonia, unspecified organism Status: Acute Assessment and Plan: She is on antibiotics. Is also on supportive care for her COPD exacerbation. History of Present Illness Reason for Consult Consult date: 02/20/22 Chief Complaint Chief complaint: Bronchitis,Pneumonia,Hypoxia History of Present Illness Narrative: Carito is a very pleasant 77-year-old lady who has multiple medical problems including hypertension, hyperlipidemia, COPD, continued tobacco use, breast cancer status post radiation chemotherapy and mastectomy about a year and a half ago which is currently an ED. The patient said if she felt well until about 3 days before admission at which time she developed a cough and some shortness of breath. She came to the emergency room. Here chest x-ray switch was done which showed pulmonary opacities. She was diagnosed with COPD exacerbation, hypoxia, and her hypertension was well controlled and so meds were adjusted for this Her sodium level was mildly low on admission and has been up and down since then so renal consultation was requested. She was placed on a fluid restriction yesterday and then today the fluid restriction was stopped and she was placed on a little bit of IV fluids. Her sodium level was as low as 123 at midnight last night and laverne to about 130 by this morning at around noon. She is eating and drinking well. He is on Lexapro and also hydrochlorothiazide at home. She does not have any brain issues that she knows of. She does have COPD and pulmonary infiltrates. She had cancer urine half ago but is deemed no evidence of disease. She has no other cancers. Review of Systems Constitutional: Constitutional: Reports no additional constitutional complaints Eyes: Eyes: Reports no additional eye complaints ENT: Reports system reviewed and no additional complaints, except as documented Cardiovascular: Cardiovascular: Reports no additional cardiovascular complaints Respiratory: Respiratory: Reports no additional respiratory complaints Gastrointestinal: Gastrointestinal: Reports no additional gastrointestinal complaints Genitourinary:
[2022-02-20 18:28] LABS: Creatinine Urine 46.4 mg/dL; Total Protein Urine Random 10 mg/dL; Ur Ttl Prot Creatinine Ratio 0.22 mg/mg (0-0.20)
[2022-02-20 19:51] LABS: Sodium Urine Random < 5 meq/L
[2022-02-20 19:53] LABS: Sodium 132 mmol/L (137-145)
[2022-02-20 20:23] LABS: Cortisol Random 4.78 ug/dL
[2022-02-20] MEDS: ATORVASTATIN 40 MG TABLET PO (20:36)
[2022-02-20] MEDS: ALPRAZolam (*CRX) 0.5 MG TABLET 1 MG PO (20:37)
[2022-02-20] MEDS: GABAPENTIN 300 MG CAPSULE 600 MG PO (20:37)
[2022-02-20 22:13] LABS: Sodium 132 mmol/L (137-145)
[2022-02-20] MEDS: DEXTROSE 5% IN WATER 500 ML 150 ML IV CONT (22:37)
[2022-02-21] VITALS (10 sets, daily range): BP systolic 116–127; BP diastolic 49–58; PULSE 64–78; RESP 14–20; TEMP 36.1–36.7; O2SAT 89–97
[2022-02-21] MEDS: ALBUTEROL SULFATE NEB 2.5 MG/3 ML INH 5 MG INHALATION ×2 (01:32→07:26)
[2022-02-21] MEDS: IPRATROPIUM BR 0.02% INH SOLN 0.5 MG/2.5 ML VIAL INHALATION ×2 (01:33→07:26)
[2022-02-21 02:13] LABS: Hematocrit 31.3 % (37.0-47.0); Hemoglobin 10.4 g/dL (12.0-15.0); Mean Corpuscular HGB Conc 33.2 g/dl (32-36); Mean Corpuscular Hemoglobin 33.5 pg (26-34); Mean Platelet Volume 10.9 fl (7.4-10.4); Platelet Count Result 198 k/mm3 (150-375); Red Cell Distribution Width 14.2 % (11.5-14.5); White Blood Count 11.7 K/mm3 (4.5-10.0)
[2022-02-21 02:25] LABS: Sodium 133 mmol/L (137-145)
[2022-02-21 02:28] LABS: Albumin Level 3.1 g/dL (3.5-5.1); Anion Gap 6 mmol/L (8-16); Blood Urea Nitrogen 29 mg/dL (7-17); Calcium 8.4 mg/dL (8.4-10.2); Carbon Dioxide 21 mmol/L (22-30); Chloride 106 mmol/L (98-107); Estimated CRCL calculation 33 ml/min; Estimated Glomerular Filt Rate 54; Glucose 178 mg/dL (65-110); Phosphorus 2.7 mg/dL (2.5-4.5); Potassium 3.9 mmol/L (3.4-5.0); Sodium 133 mmol/L (137-145)
[2022-02-21 02:30] LABS: Anion Gap 6 mmol/L (8-16); Blood Urea Nitrogen 29 mg/dL (7-17); Calcium 8.4 mg/dL (8.4-10.2); Carbon Dioxide 21 mmol/L (22-30); Chloride 106 mmol/L (98-107); Estimated CRCL calculation 30 ml/min; Estimated Glomerular Filt Rate 48; Glucose 179 mg/dL (65-110); Potassium 3.8 mmol/L (3.4-5.0); Sodium 133 mmol/L (137-145)
[2022-02-21 02:46] LABS: Free T4 Free Thyroxine Reflex 0.93 ng/dL (0.78-2.19)
[2022-02-21] MEDS: DEXTROSE 5% IN WATER 500 ML 150 ML IV CONT (03:34)
[2022-02-21 03:44] LABS: Total Triiodothyronine (T3) 0.52 NG/ML (0.97-1.69)
[2022-02-21] MEDS: methylPREDNISolone SOD SUCC 40 MG VIAL IV PUSH ×3 (05:00→20:44)
[2022-02-21 07:52] LABS: Sodium 135 mmol/L (137-145)
--- NOTE | 2022-02-21 08:15 | PM.PNNEP ---
Progress Note: A&P Assessment and Plan (1) Hyponatremia: Code(s): E87.1 - Hypo-osmolality and hyponatremia Status: Acute Assessment and Plan: The patient has hyponatremia. Her sodium level was a little low one time in 2019 but otherwise was normal before she came in the hospital this time. Urine electrolytes are pre renal. Urine and serum osmolality are pending. SPEP is pending. TSH is low, and free T3 is low. Free T4 is normal. Cortisol level is low, but she is on Solu-Medrol. Likely the low sodium is due to Hydrochlorothiazide and Lexapro. The patient is off these Since giving her a little fluid and putting on a fluid restriction, her sodium corrected a little bit too quickly. First it was a trend toward too fast and so D5W was given twice however she continued to correct so will give DDAVP and another round of D5W and see where the sodium lands. The goal is to get it down to 133 since yesterday morning at 5:41 a.m. the sodium was 125. (2) Tobacco abuse: Code(s): Z72.0 - Tobacco use Status: Acute Assessment and Plan: She was encouraged to quit. Consider Chantix or patches? (3) Hypertension: Code(s): I10 - Essential (primary) hypertension Status: Acute Assessment and Plan: Blood pressure is under good control. (4) Community acquired pneumonia: Code(s): J18.9 - Pneumonia, unspecified organism Status: Acute Assessment and Plan: She is on antibiotics. Is also on supportive care for her COPD exacerbation. Subjective Date/time seen: 02/21/22 08:15 Interval history: patient feels okay today. She is eating and drinking well. Review of Systems Cardiovascular: Cardiovascular: Reports no additional cardiovascular complaints Respiratory: Respiratory: Reports no additional respiratory complaints Gastrointestinal: Gastrointestinal: Reports no additional gastrointestinal complaints Genitourinary: Genitourinary: Reports no additional female genitourinary complaints Exam Narrative: WDWN in NAD skin no rash head ncat lungs clear cor reg no rub abd BS+ nontender and soft ext no edema. Objective Data Vital Signs Vital Signs: Vital Signs - 24 hr 02/20/22 20:57 02/20/22 20:58 02/20/22 21:16 Temperature 36.7 C Pulse Rate 74 72 Respiratory Rate 16 14 Blood Pressure 120/49 L Pulse Oximetry 94 94 Oxygen Delivery Nasal Cannula Oxygen Flow Rate 1 02/20/22 21:12 02/20/22 20:00 02/21/22 01:34 Temperature Pulse Rate 77 72 Respiratory Rate 16 14 Blood Pressure Pulse Oximetry 94 Oxygen Delivery Nasal Cannula Oxygen Flow Rate 1 02/21/22 01:48 02/21/22 05:48 02/21/22 07:29 Temperature 36.1 C L Pulse Rate 74 71 78 Respiratory Rate 14 14 18 Blood Pressure 116/52 L Pulse Oximetry 92 95 Oxygen Delivery Room Air Oxygen Flow Rate 02/21/22 07:29 02/21/22 07:36 02/21/22 08:00 Temperature Pulse Rate 75 78 Respiratory Rate 15 15 Blood Pressure Pulse Oximetry 89 L Oxygen Delivery Room Air Oxygen Flow Rate 02/21/22 08:05 02/21/22 14:00 Temperature 36.7 C Pulse Rate 77 Respiratory Rate 20 Blood Pressure 123/49 L Pulse Oximetry 91 96 Oxygen Delivery Nasal Cannula Oxygen Flow Rate 1 Intake/Output Intake/Output: Intake & Output 02/18/22 02/19/22 02/20/22 02/21/22 23:59 23:59 23:59 23:59 Intake Total 1620 1350 2220 1520 Output Total 600 2200 1650 Balance 1620 750 20 -130 Meds/Results Medications: Active Medications Generic Name Dose Route Start Last Admin Trade Name Freq PRN Reason Stop Dose Admin Acetaminophen 650 mg 02/18/22 04:15 Acetaminophen 325 Mg Tablet PO Q4H PRN Mild Pain (1-3) or Fever Hydrocodone Bitart/Acetaminophen 1 tab 02/18/22 04:15 Hydrocodone/Acetaminophen (*Crx) 5-325 Mg Tablet PO Q4H PRN Pain Rated 4-6 Albuterol 5 mg 02/18/22 08:00 02/21/22 07:26
[2022-02-21] MEDS: DESMOPRESSIN ACETATE 4 MCG/ML AMP 2 MCG IV PUSH (08:16)
[2022-02-21] MEDS: ENOXAPARIN 40 MG/0.4 ML SYRINGE SUB-Q (08:17)
[2022-02-21] MEDS: guaiFENesin 12 HR 600 MG TABCR PO ×2 (08:17→20:43)
[2022-02-21] MEDS: DEXTROSE 5% 1,000 ML 1,000 ML 150 ML IV CONT (09:09)
[2022-02-21 11:08] LABS: Sodium 133 mmol/L (137-145)
--- NOTE | 2022-02-21 12:47 | PC.NURSE ---
On 02/21/22, the student, Netta [facility], [facility] I have reviewed the student's documentation and agree with the findings.
--- NOTE | 2022-02-21 14:34 | P.PNIM_ITS ---
Progress Note: A&P Assessment and Plan (1) COPD exacerbation: Code(s): J44.1 - Chronic obstructive pulmonary disease with (acute) exacerbation Status: Acute Assessment and Plan: patient with untreated COPD presented with wheezing, consistent with COPD exacerbation * continue IV Solu-Medrol 40 mg q12h. will transition to p.o. prednisone 40 mg daily tomorrow * albuterol and ipratropium nebs q6h p.r.n. * continue IV azithromycin in light of increased sputum production * supportive care. expectorants and incentive spirometry * she will need outpatient follow-up for treatment of COPD. May benefit from pulmonology referral. * will need scheduled long-acting inhalers (2) Hypoxia: Code(s): R09.02 - Hypoxemia Status: Acute Assessment and Plan: patient hypoxic down to 88%. secondary to above * initially required 4 L supplemental oxygen * O2 requirement is improving, currently on 1 L O2 and maintaining adequate O2 sats * wean oxygen as tolerated and monitor O2 sats closely * will benefit from home O2 evaluation prior to discharge (3) Hyponatremia: Code(s): E87.1 - Hypo-osmolality and hyponatremia Status: Acute Assessment and Plan: sodium declined to 123. 136-137 at baseline. Patient is asymptomatic. * fluid restriction diet * urine sodium <5 * appreciate nephrology recommendations * received desmopressin and D5 this morning * sodium 133 this morning. Continue to monitor closely to ensure appropriate rate of correction (4) Abnormal CXR: Code(s): R93.89 - Abnormal findings on diagnostic imaging of other specified body structures Status: Acute Assessment and Plan: CXR on presentation showed pulmonary opacities which may represent mild bronchiolitis which may be due to atypical infection vs asthma vs aspiration vs small airway disease * patient is afebrile, no leukocytosis prior to starting IV steroids, no additional clinical signs to suggest acute infection. aspiration is unlikely. patient is improving clinically * repeat CXR completed on 02/20 showed stable blunting of left costophrenic angle consistent with scarring vs tiny effusion (5) Hypertension: Code(s): I10 - Essential (primary) hypertension Status: Acute Assessment and Plan: blood pressure has been running low. last BP 123/49 * holding home losartan-hydrochlorothiazide at this time to avoid hypotension * orthostatics negative * patient asymptomatic * monitor BP trends closely (6) Anxiety: Code(s): F41.9 - Anxiety disorder, unspecified Status: Acute Assessment and Plan: no acute issues at this time * continue alprazolam at night * Lexapro on hold due to hyponatremia (7) Tobacco abuse: Code(s): Z72.0 - Tobacco use Status: Acute Assessment and Plan: patient smokes a half pack a day * declined need for nicotine patch * educated on smoking cessation. continue to reinforce Subjective Date/time seen: 02/21/22 14:34 Interval history: Date of service: 02/21/2022 Carito Odom is a 77-year-old female with a history of anxiety, hypertension, hyperlipidemia, breast cancer s/p chemotherapy, radiation, and mastectomy with associated left upper extremity neuropathy, COPD not maintained on any inhalers, and tobacco abuse? who is seen in follow-up for COPD exacerbation. she is feeling well today. Her shortness of breath is improved. She denies cough. No sputum production
--- NOTE | 2022-02-21 14:34 | PM.IMPN ---
Progress Note: A&P Assessment and Plan (1) COPD exacerbation: Code(s): J44.1 - Chronic obstructive pulmonary disease with (acute) exacerbation Status: Acute Assessment and Plan: patient with untreated COPD presented with wheezing, consistent with COPD exacerbation continue IV Solu-Medrol 40 mg q12h. will transition to p.o. prednisone 40 mg daily tomorrow albuterol and ipratropium nebs q6h p.r.n. continue IV azithromycin in light of increased sputum production supportive care. expectorants and incentive spirometry she will need outpatient follow-up for treatment of COPD. May benefit from pulmonology referral. will need scheduled long-acting inhalers (2) Hypoxia: Code(s): R09.02 - Hypoxemia Status: Acute Assessment and Plan: patient hypoxic down to 88%. secondary to above initially required 4 L supplemental oxygen O2 requirement is improving, currently on 1 L O2 and maintaining adequate O2 sats wean oxygen as tolerated and monitor O2 sats closely will benefit from home O2 evaluation prior to discharge (3) Hyponatremia: Code(s): E87.1 - Hypo-osmolality and hyponatremia Status: Acute Assessment and Plan: sodium declined to 123. 136-137 at baseline. Patient is asymptomatic. fluid restriction diet urine sodium <5 appreciate nephrology recommendations received desmopressin and D5 this morning sodium 133 this morning. Continue to monitor closely to ensure appropriate rate of correction (4) Abnormal CXR: Code(s): R93.89 - Abnormal findings on diagnostic imaging of other specified body structures Status: Acute Assessment and Plan: CXR on presentation showed pulmonary opacities which may represent mild bronchiolitis which may be due to atypical infection vs asthma vs aspiration vs small airway disease patient is afebrile, no leukocytosis prior to starting IV steroids, no additional clinical signs to suggest acute infection. aspiration is unlikely. patient is improving clinically repeat CXR completed on 02/20 showed stable blunting of left costophrenic angle consistent with scarring vs tiny effusion (5) Hypertension: Code(s): I10 - Essential (primary) hypertension Status: Acute Assessment and Plan: blood pressure has been running low. last BP 123/49 holding home losartan-hydrochlorothiazide at this time to avoid hypotension orthostatics negative patient asymptomatic monitor BP trends closely (6) Anxiety: Code(s): F41.9 - Anxiety disorder, unspecified Status: Acute Assessment and Plan: no acute issues at this time continue alprazolam at night Lexapro on hold due to hyponatremia (7) Tobacco abuse: Code(s): Z72.0 - Tobacco use Status: Acute Assessment and Plan: patient smokes a half pack a day declined need for nicotine patch educated on smoking cessation. continue to reinforce Subjective Date/time seen: 02/21/22 14:34 Interval history: Date of service: 02/21/2022 Carito Odom is a 77-year-old female with a history of anxiety, hypertension, hyperlipidemia, breast cancer s/p chemotherapy, radiation, and mastectomy with associated left upper extremity neuropathy, COPD not maintained on any inhalers, and tobacco abuse? who is seen in follow-up for COPD exacerbation. she is feeling well today. Her shortness of breath is improved. She denies cough. No sputum production. No sinus congestion. Denies conversational dyspnea. She has been able to get up and ambulate without much difficulty. She does endorse to feeling slightly winded when she gets back in bed after walking to and from the bathroom. She denies dizziness, lightheadedness, chest pain, palpitations, nausea, vomiting. Appetite is good. No urinary symptoms. No headache or confusion. Review of Systems Review of Systems: All systems reviewed & ar
[2022-02-21 17:05] LABS: Sodium 131 mmol/L (137-145)
[2022-02-21] MEDS: ATORVASTATIN 40 MG TABLET PO (20:43)
[2022-02-21] MEDS: GABAPENTIN 300 MG CAPSULE 600 MG PO (20:43)
[2022-02-21] MEDS: ALPRAZolam (*CRX) 0.5 MG TABLET 1 MG PO (20:43)
[2022-02-22 05:44] LABS: Hematocrit 31.4 % (37.0-47.0); Hemoglobin 10.6 g/dL (12.0-15.0); Mean Corpuscular HGB Conc 33.8 g/dl (32-36); Mean Corpuscular Hemoglobin 33.3 pg (26-34); Mean Corpuscular Volume 98.7 fl (80-100); Mean Platelet Volume 10.7 fl (7.4-10.4); Platelet Count Result 189 k/mm3 (150-375); Red Blood Count 3.18 M/mm3 (4.2-5.4); Red Cell Distribution Width 14.1 % (11.5-14.5); White Blood Count 8.1 K/mm3 (4.5-10.0)
[2022-02-22 05:53] LABS: Albumin Level 3.1 g/dL (3.5-5.1); Anion Gap 4 mmol/L (8-16); Blood Urea Nitrogen 21 mg/dL (7-17); Calcium 7.9 mg/dL (8.4-10.2); Carbon Dioxide 23 mmol/L (22-30); Chloride 99 mmol/L (98-107); Estimated CRCL calculation 41 ml/min; Estimated Glomerular Filt Rate > 60; Glucose 107 mg/dL (65-110); Phosphorus 3.2 mg/dL (2.5-4.5); Potassium 4.7 mmol/L (3.4-5.0); Sodium 126 mmol/L (137-145)
[2022-02-22 06:00] VITALS: BP 153/73; PULSE 57; RESP 16; TEMP 36.7; O2SAT 94
--- NOTE | 2022-02-22 07:40 | P.PNIM_ITS ---
Progress Note: A&P Assessment and Plan (1) COPD exacerbation: Code(s): J44.1 - Chronic obstructive pulmonary disease with (acute) exacerbation Status: Acute Assessment and Plan: patient with untreated COPD presented with wheezing, consistent with acute COPD exacerbation * Treated with IV solu-medrol since admission, 02/22/22 transitioned to p.o. prednisone 40 mg daily x 5 days. * albuterol and ipratropium nebs q6h p.r.n. * Stop azithromycin 02/22 as she has received 4 days of therapy. * Add Trelegy 1 puff daily. * Continue supportive care with expectorants and incentive spirometry * she will need outpatient follow-up for treatment of COPD. (2) Hypoxia: Code(s): R09.02 - Hypoxemia Status: Acute Assessment and Plan: patient hypoxic down to 88%. secondary to above * initially required 4 L supplemental oxygen * O2 requirement is improving, currently on 1 L O2 and maintaining adequate O2 sats * wean oxygen as tolerated and monitor O2 sats closely * will benefit from home O2 evaluation prior to discharge * 02/22/22 stable. (3) Hyponatremia: Code(s): E87.1 - Hypo-osmolality and hyponatremia Status: Acute Assessment and Plan: sodium declined to 123. 136-137 at baseline. Patient is asymptomatic. * fluid restriction diet * urine sodium <5 * appreciate nephrology recommendations * received desmopressin and D5 02/21/22 given for overcorrected sodium. * 02/22/22 Sodium 126, 1L fluid restriction started, repeat sodium 123. (4) Abnormal CXR: Code(s): R93.89 - Abnormal findings on diagnostic imaging of other specified body structures Status: Acute Assessment and Plan: CXR on presentation showed pulmonary opacities which may represent mild bronchiolitis which may be due to atypical infection vs asthma vs aspiration vs small airway disease * patient is afebrile, no leukocytosis prior to starting IV steroids, no additional clinical signs to suggest acute infection. aspiration is unlikely. patient is improving clinically * repeat CXR completed on 02/20 showed stable blunting of left costophrenic angle consistent with scarring vs tiny effusion * Patient was treated for atypical pneumonia and improved. (5) Hypertension: Code(s): I10 - Essential (primary) hypertension Status: Chronic Assessment and Plan: chronic, blood pressures reviewed. last BP 144/64 * holding home losartan-hydrochlorothiazide at this time to avoid hypotension * orthostatics negative * Monitor closely. (6) Anxiety: Code(s): F41.9 - Anxiety disorder, unspecified Status: Chronic Assessment and Plan: no acute issues at this time * continue alprazolam at night * Lexapro on hold due to hyponatremia (7) Tobacco abuse: Code(s): Z72.0 - Tobacco use Status: Chronic Assessment and Plan: patient smokes a half pack a day * declined need for nicotine patch * educated on smoking cessation. continue to reinforce * continue to field counsel on smoking cessation. Plan CODE STATUS: FULL CODE Disposition: home with family Time Spent With Patient Time with patient: 15 - 25 minutes Subjective Date/time seen: 02/22/22 07:40 Interval history: Patient is a 77-year-old female with medical comorbidities of anxiety, hypertension, hyperlipidemia, COPD and history of breast cancer s/p chemotherapy, radiation, and mastectomy who is seen in follow-up for COPD exacerbation and h
--- NOTE | 2022-02-22 07:40 | PM.IMPN ---
Progress Note: A&P Assessment and Plan (1) COPD exacerbation: Code(s): J44.1 - Chronic obstructive pulmonary disease with (acute) exacerbation Status: Acute Assessment and Plan: patient with untreated COPD presented with wheezing, consistent with acute COPD exacerbation Treated with IV solu-medrol since admission, 02/22/22 transitioned to p.o. prednisone 40 mg daily x 5 days. albuterol and ipratropium nebs q6h p.r.n. Stop azithromycin 02/22 as she has received 4 days of therapy. Add Trelegy 1 puff daily. Continue supportive care with expectorants and incentive spirometry she will need outpatient follow-up for treatment of COPD. (2) Hypoxia: Code(s): R09.02 - Hypoxemia Status: Acute Assessment and Plan: patient hypoxic down to 88%. secondary to above initially required 4 L supplemental oxygen O2 requirement is improving, currently on 1 L O2 and maintaining adequate O2 sats wean oxygen as tolerated and monitor O2 sats closely will benefit from home O2 evaluation prior to discharge 02/22/22 stable. (3) Hyponatremia: Code(s): E87.1 - Hypo-osmolality and hyponatremia Status: Acute Assessment and Plan: sodium declined to 123. 136-137 at baseline. Patient is asymptomatic. fluid restriction diet urine sodium <5 appreciate nephrology recommendations received desmopressin and D5 02/21/22 given for overcorrected sodium. 02/22/22 Sodium 126, 1L fluid restriction started, repeat sodium 123. (4) Abnormal CXR: Code(s): R93.89 - Abnormal findings on diagnostic imaging of other specified body structures Status: Acute Assessment and Plan: CXR on presentation showed pulmonary opacities which may represent mild bronchiolitis which may be due to atypical infection vs asthma vs aspiration vs small airway disease patient is afebrile, no leukocytosis prior to starting IV steroids, no additional clinical signs to suggest acute infection. aspiration is unlikely. patient is improving clinically repeat CXR completed on 02/20 showed stable blunting of left costophrenic angle consistent with scarring vs tiny effusion Patient was treated for atypical pneumonia and improved. (5) Hypertension: Code(s): I10 - Essential (primary) hypertension Status: Chronic Assessment and Plan: chronic, blood pressures reviewed. last BP 144/64 holding home losartan-hydrochlorothiazide at this time to avoid hypotension orthostatics negative Monitor closely. (6) Anxiety: Code(s): F41.9 - Anxiety disorder, unspecified Status: Chronic Assessment and Plan: no acute issues at this time continue alprazolam at night Lexapro on hold due to hyponatremia (7) Tobacco abuse: Code(s): Z72.0 - Tobacco use Status: Chronic Assessment and Plan: patient smokes a half pack a day declined need for nicotine patch educated on smoking cessation. continue to reinforce continue to developmental training counselor on smoking cessation. Plan CODE STATUS: FULL CODE Disposition: home with family Time Spent With Patient Time with patient: 15 - 25 minutes Subjective Date/time seen: 02/22/22 07:40 Interval history: Patient is a 77-year-old female with medical comorbidities of anxiety, hypertension, hyperlipidemia, COPD and history of breast cancer s/p chemotherapy, radiation, and mastectomy who is seen in follow-up for COPD exacerbation and hyponatremia. The patient is tearful. She is wanting to go home. No c/o anorexia, N/V/D, abd pain, SOB, cough or sputum. Sodium was 126 this morning. Review of Systems Review of Systems: All systems reviewed & are unremarkable except as noted in HPI and below Exam Narrative: General: thin, no acute distress. On room air. Neuro: awake, alert and oriented x4, speech clear, no focal neuro deficits noted HEENMT: normocephalic, atraumatic, pupils equal an
[2022-02-22 08:00] VITALS: O2SAT 94
[2022-02-22] MEDS: guaiFENesin 12 HR 600 MG TABCR PO ×2 (08:33→20:22)
[2022-02-22] MEDS: predniSONE 20 MG TABLET 40 MG PO (08:33)
--- NOTE | 2022-02-22 13:04 | PM.PNNEP ---
Progress Note: A&P Assessment and Plan (1) Hyponatremia: Code(s): E87.1 - Hypo-osmolality and hyponatremia Status: Acute Assessment and Plan: The patient has hyponatremia. Her sodium level was a little low one time in 2019 but otherwise was normal before she came in the hospital this time. Urine electrolytes are pre renal. Urine and serum osmolality are pending. SPEP is pending. TSH is low, and free T3 is low. Free T4 is normal. Cortisol level is low, but she is on Solu-Medrol. Likely the low sodium is due to hydrochlorothiazide and lexapro. The patient is off these her sodium overcorrected by a little yesterday. given ddavp and d5w to bring the sodium back down. it was 126 this am. will repeat at 4pm and decide what to do then. she may be able to go home if it rises some. discussed with DASHA Sawyer. (2) Tobacco abuse: Code(s): Z72.0 - Tobacco use Status: Acute Assessment and Plan: She was encouraged to quit. Consider Chantix or patches? (3) Hypertension: Code(s): I10 - Essential (primary) hypertension Status: Acute Assessment and Plan: Blood pressure is under good control. (4) Community acquired pneumonia: Code(s): J18.9 - Pneumonia, unspecified organism Status: Acute Assessment and Plan: She is off the antibiotics. Is also on supportive care for her COPD exacerbation. Subjective Date/time seen: 02/22/22 13:04 Interval history: patient feels okay today. she ate a good lunch. The patient had an over-correction of sodium yesterday. She was given DDAVP and D5W. I had several conversations with nursing about her various sodium levels yesterday. Exam Narrative: WDWN in NAD skin no rash head ncat lungs clear bilaterally cor reg no rub or gallop abd BS+ nontender and soft ext no edema. Objective Data Vital Signs Vital Signs: Vital Signs - 24 hr 02/21/22 14:00 02/21/22 17:47 02/21/22 14:00 Temperature 36.7 C Pulse Rate 77 Respiratory Rate 20 Blood Pressure 123/49 L Pulse Oximetry 96 94 92 Oxygen Delivery Room Air Room Air 02/21/22 21:46 02/22/22 06:00 02/22/22 08:00 Temperature 36.2 C L 36.7 C Pulse Rate 64 57 L Respiratory Rate 18 16 Blood Pressure 127/58 L 153/73 H Pulse Oximetry 97 94 94 Oxygen Delivery Room Air Intake/Output Intake/Output: Intake & Output 02/19/22 02/20/22 02/21/22 02/22/22 23:59 23:59 23:59 23:59 Intake Total 1350 2220 2500 1840 Output Total 600 2200 2850 500 Balance 750 20 -350 1340 Meds/Results Medications: Active Medications Generic Name Dose Route Start Last Admin Trade Name Freq PRN Reason Stop Dose Admin Acetaminophen 650 mg 02/18/22 04:15 Acetaminophen 325 Mg Tablet PO Q4H PRN Mild Pain (1-3) or Fever Hydrocodone Bitart/Acetaminophen 1 tab 02/18/22 04:15 Hydrocodone/Acetaminophen (*Crx) 5-325 Mg Tablet PO Q4H PRN Pain Rated 4-6 Albuterol 5 mg 02/21/22 14:47 Albuterol Sulfate Neb 2.5 Mg/3 Ml Inh INHALATION Q6HRT PRN Bronchospasm Alprazolam 1 mg 02/18/22 21:00 02/21/22 20:43 Alprazolam (*Crx) 0.5 Mg Tablet PO 1 mg HS JOSH Administration Atorvastatin Calcium 40 mg 02/18/22 21:00 02/21/22 20:43 Atorvastatin 40 Mg Tablet PO 40 mg HS JOSH Administration Enoxaparin Sodium 40 mg 02/19/22 09:00 02/22/22 08:33 Enoxaparin 40 Mg/0.4 Ml Syringe SUB-Q Not Given DAILY JOSH Fluticasone/Umeclidinium/Vilanterol 1 puff 02/22/22 13:00 Fluticasone/Umeclidin/Vilanter 100-62.5-25 Mcg Ellipta INHALATION DAILYRT JOSH Gabapentin 600 mg 02/18/22 21:00 02/21/22 20:43 Gabapentin 300 Mg Capsule PO 600 mg HS JOSH Administration Guaifenesin 600 mg 02/18/22 21:00 02/22/22 08:33 Guaifenesin 12 Hr 600 Mg Tabcr PO 600 mg Q12HR JOSH Administration Ipratropium Mullin 0.5 mg 02/21/22 14:47 Ipratropium Br 0.02% Inh Soln 0.
[2022-02-22 14:00] VITALS: BP 144/64; PULSE 54; RESP 16; TEMP 37; O2SAT 97
[2022-02-22] MEDS: FLUTICASONE/UMECLIDIN/VILANTER 100-62.5-25 MCG ELLIPTA 1 PUFF INHALATION (14:58)
--- NOTE | 2022-02-22 15:53 | P.CDI_ITS ---
CDI Query Clarification Request 02/18 ER physician documented: Clinical Impression: -?Community acquired pneumonia, Bronchitis, Hypoxia 02/18 Hospitalist documented: Abnormal CXR: ?Code(s): R93.89 - Abnormal findings on diagnostic imaging of other specified body structures ?Status:?Acute ?Assessment and Plan: -CXR on presentation showed pulmonary opacities which may represent mild bronchiolitis which may be due to atypical infection vs asthma vs aspiration vs small airway disease * ?patient is afebrile, no leukocytosis, no additional clinical signs to suggest acute infection. aspiration is unlikely. * ?has been started on IV azithromycin this admission in light of cough and mucus production.? continue at this time * ?consider repeat CXR to assess for imrovement Please clarify if community acquired pneumonia has been ruled in or ruled out. If community acquired pneumonia has been ruled in please add to problem list.
[2022-02-22 16:05] LABS: Sodium 123 mmol/L (137-145)
[2022-02-22] MEDS: SODIUM CHLORIDE 3% 500 ML 50 ML IV CONT (17:32)
[2022-02-22 20:00] VITALS: PULSE 54; RESP 16; O2SAT 97
[2022-02-22] MEDS: ATORVASTATIN 40 MG TABLET PO (20:22)
[2022-02-22] MEDS: ALPRAZolam (*CRX) 0.5 MG TABLET 1 MG PO (20:22)
[2022-02-22] MEDS: GABAPENTIN 300 MG CAPSULE 600 MG PO (20:22)
[2022-02-22 21:43] LABS: Sodium 128 mmol/L (137-145)
--- NOTE | 2022-02-22 21:45 | PC.NURSE ---
pt sodium 128 at this time after infusion of 200ml of 3% sodium as ordered. called Md Falcon to report, awaiting call back.
[2022-02-22 21:54] VITALS: BP 148/56; PULSE 56; RESP 16; TEMP 36.6; O2SAT 94
[2022-02-23 05:44] VITALS: BP 130/67; PULSE 57; RESP 16; TEMP 35.9; O2SAT 97
--- NOTE | 2022-02-23 06:48 | PC.NURSE ---
reported na 128 after 3% NA infusion, n.o for bmp this morning per Md Falcon.
[2022-02-23 07:21] LABS: Anion Gap 5 mmol/L (8-16); Blood Urea Nitrogen 20 mg/dL (7-17); Calcium 7.4 mg/dL (8.4-10.2); Carbon Dioxide 22 mmol/L (22-30); Chloride 102 mmol/L (98-107); Estimated CRCL calculation 41 ml/min; Estimated Glomerular Filt Rate > 60; Glucose 82 mg/dL (65-110); Potassium 4.3 mmol/L (3.4-5.0); Sodium 129 mmol/L (137-145)
[2022-02-23] MEDS: FLUTICASONE/UMECLIDIN/VILANTER 100-62.5-25 MCG ELLIPTA 1 PUFF INHALATION (08:37)
[2022-02-23] MEDS: predniSONE 20 MG TABLET 40 MG PO (09:14)
[2022-02-23] MEDS: guaiFENesin 12 HR 600 MG TABCR PO (09:15)
[2022-02-23] MEDS: ENOXAPARIN 40 MG/0.4 ML SYRINGE SUB-Q (09:15)
--- NOTE | 2022-02-23 11:41 | PM.DS ---
DS: Admitting Diagnosis Discharge Date 02/23/2022 1204 Admitting Diagnosis Acute COPD exacerbation Hypoxia Bronchiolitis DS: Discharge Diagnosis Discharge Diagnosis (1) COPD exacerbation: Code(s): J44.1 - Chronic obstructive pulmonary disease with (acute) exacerbation Status: Acute (2) Hypoxia: Code(s): R09.02 - Hypoxemia Status: Acute (3) Hyponatremia: Code(s): E87.1 - Hypo-osmolality and hyponatremia Status: Acute Assessment and Plan: (4) Bronchitis: Code(s): J40 - Bronchitis, not specified as acute or chronic Status: Acute (5) Hypertension: Qualifiers: Hypertension type: primary hypertension Qualified Code(s): I10 - Essential (primary) hypertension Code(s): I10 - Essential (primary) hypertension Status: Chronic (6) Anxiety: Code(s): F41.9 - Anxiety disorder, unspecified Status: Chronic (7) Tobacco abuse: Code(s): Z72.0 - Tobacco use Status: Chronic DS: Summary Hospital Course Reason for hospitalization: Shortness of breath Hospital Course: Carito Odom is a 77-year-old female withanxiety, hypertension, hyperlipidemia, COPD, tobacco dependence and history breast cancer s/p chemotherapy, radiation, and mastectomy. She presented to the emergency department on 02/18/2022 for evaluation of shortness of breath.? For 3 days prior to admission, she reported a pretty bad cough, that she describes as hacking in nature, and fatigue.? She denied sputum production.? Her daughter's who are visiting from out of town noticed that she was very short of breath while she was sleeping and they told her she was rattling. ? The patient did not feel that bad and did not come for evaluation, however her daughter's convinced her to seek medical care.? The patient denied shortness of breath, GARCIA, conversational dyspnea.? She has no difficulty completing her daily tasks, but admits that if she were to walk up a flight of stairs this would cause some shortness of breath.? She denied recent cold or flu symptoms.? No nasal congestion, sore throat, fever, chills, body aches.? She has intermittent rhinorrhea for several months.? No recent sick contacts.? She completed COVID vaccine with 2 boosters and influenza vaccine. She does not use any inhalers or a rescue inhaler.? On presentation to the ED, she was mildly tachypneic with additional vital signs stable, she was afebrile, CBC and BMP unremarkable, COVID and influenza vaccine negative, and chest x-ray showed pulmonary opacities which may represent mild bronchiolitis, asthma, aspiration, or small airway disease.? She was being admitted for further management of acute COPD exacerbation and bronchiolitis. She was treated with IV solu-medrol, duonebs and IV azithromycin 500 mg Q24 hours. On 02/22/22, she was transitioned to oral prednisone and azithromycin was stopped. Underlying pneumonia was thought to be less likely. She was started on Trelegy inhaler once daily. She was requiring 4 liters of O2 on admission, but was weaned to room air with O2 sats >90% at discharged. Additionally, she was was noted to have low sodium on 02/19/22 as low as 126. She was treated with IV fluid and fluid restriction. This was thought to be secondary to lexapro medication recently started. HCTZ and lexapro were stopped. Nephrology was consulted. Her sodium level was monitored. She was thought to have been correcting too quickly and therefore received D5W fluids and DDAVP 2 mcg x1. Her sodium the following day was 126 to 123. She received 3% NS fluids x1, then placed on 1L fluids restriction. Her repeat sodium on 02/23/22 was 129. She was asymptomatic. She was discharged home with family in stable condition with repeat BMP in 1 week, follow up via telephone with Dr. Falcon, Nephrology, and PCP. She was counseled on tobacco cessation, inhaler use and when to seek further care. Lexapro and HCTZ were stopped on discharge.
--- NOTE | 2022-02-23 11:49 | PM.PNNEP ---
Progress Note: A&P Assessment and Plan (1) Hyponatremia: Code(s): E87.1 - Hypo-osmolality and hyponatremia Status: Acute Assessment and Plan: The patient has hyponatremia. Her sodium level was a little low one time in 2019 but otherwise was normal before she came in the hospital this time. Urine electrolytes are pre renal. Urine and serum osmolality are pending. SPEP is pending. TSH is low, and free T3 is low. Free T4 is normal. Cortisol level is low, but she is on Solu-Medrol. Likely the low sodium is due to hydrochlorothiazide and lexapro. I had a long conversation with her daughters yesterday. The diagnosis causing the hyponatremia is clearly on the medicines. The only issue is that we do not want to come up too quickly. Today her sodium level is 129. I think this is close enough to her baseline to allow her to go home today. She should continue to stay on the fluid restriction for now. She should not take any more Lexapro ever. If her blood pressure is controlled well enough off hydrochlorothiazide she should probably stay off of this medication as well. She can get blood work done on Friday and call me Friday or for the result. She should come to [place] for the blood work. discussed with DASHA Sawyer. (2) Tobacco abuse: Code(s): Z72.0 - Tobacco use Status: Chronic Assessment and Plan: She was encouraged to quit. Consider Chantix or patches? (3) Hypertension: Code(s): I10 - Essential (primary) hypertension Status: Chronic Assessment and Plan: Blood pressure is under good control. Losartan alone is fine. (4) Community acquired pneumonia: Code(s): J18.9 - Pneumonia, unspecified organism Status: Acute Assessment and Plan: She is off the antibiotics. Is also on supportive care for her COPD exacerbation. Subjective Date/time seen: 02/23/22 11:49 Interval history: patient feels okay today. Eating some breakfast. Exam Narrative: WDWN in NAD skin no rash or subQ nodules head ncat lungs clear bilaterally cor reg no rub or gallop abd BS+ nontender and soft ext no edema or cyanosis Objective Data Vital Signs Vital Signs: Vital Signs - 24 hr 02/22/22 14:00 02/22/22 20:00 02/22/22 21:54 Temperature 37.0 C 36.6 C Pulse Rate 54 L 54 L 56 L Respiratory Rate 16 16 16 Blood Pressure 144/64 H 148/56 H Pulse Oximetry 97 97 94 Oxygen Delivery Room Air 02/23/22 05:44 02/23/22 09:15 Temperature 35.9 C L Pulse Rate 57 L Respiratory Rate 16 Blood Pressure 130/67 Pulse Oximetry 97 Oxygen Delivery Room Air Intake/Output Intake/Output: Intake & Output 02/20/22 02/21/22 02/22/22 02/23/22 23:59 23:59 23:59 23:59 Intake Total 2220 2500 2040 0 Output Total 2200 2850 1200 400 Balance 20 -350 840 -400 Meds/Results Medications: Active Medications Generic Name Dose Route Start Last Admin Trade Name Freq PRN Reason Stop Dose Admin Acetaminophen 650 mg 02/18/22 04:15 Acetaminophen 325 Mg Tablet PO Q4H PRN Mild Pain (1-3) or Fever Hydrocodone Bitart/Acetaminophen 1 tab 02/18/22 04:15 Hydrocodone/Acetaminophen (*Crx) 5-325 Mg Tablet PO Q4H PRN Pain Rated 4-6 Albuterol 5 mg 02/21/22 14:47 Albuterol Sulfate Neb 2.5 Mg/3 Ml Inh INHALATION Q6HRT PRN Bronchospasm Alprazolam 1 mg 02/18/22 21:00 02/22/22 20:22 Alprazolam (*Crx) 0.5 Mg Tablet PO 1 mg HS JOSH Administration Atorvastatin Calcium 40 mg 02/18/22 21:00 02/22/22 20:22 Atorvastatin 40 Mg Tablet PO 40 mg HS JOSH Administration Enoxaparin Sodium 40 mg 02/19/22 09:00 02/23/22 09:15 Enoxaparin 40 Mg/0.4 Ml Syringe SUB-Q 40 mg DAILY JOSH Administration Fluticasone/Umeclidinium/Vilanterol 1 puff 02/22/22 13:00 02/23/22 08:37 Fluticasone/Umeclidin/Vilanter 100-62.5-25 Mcg Ellipta INHALATION 1 puff DAILYRT JOSH Administratio
[2022-02-24 11:18] LABS: Osmolality, Urine 262 mOsm/kg (50-1200)
== END 2022-02-23 12:35 | disposition home or self-care (01) | DRG 191 ==
LOC: ANHED 23:32 → ANH3MEDSUR 02-18 04:35
PROVIDERS: Internal Medicine Nephrology; Physician Assistant; Admitting Provider Internal Medicine; Emergency Provider Emergency Medicine; Visit Provider Nurse Practitioner Family
DX: J44.1 Chronic obstructive pulmonary disease with (acute) exacerbation (principal); E87.1 Hypo-osmolality and hyponatremia; T43.225A Adverse effect of selective serotonin reuptake inhibitors, initial encounter; J44.0 Chronic obstructive pulmonary disease with (acute) lower respiratory infection; R09.02 Hypoxemia; J40 Bronchitis, not specified as acute or chronic; I10 Essential (primary) hypertension; F41.9 Anxiety disorder, unspecified; E78.5 Hyperlipidemia, unspecified; G62.9 Polyneuropathy, unspecified; E86.0 Dehydration; G89.29 Other chronic pain; M54.9 Dorsalgia, unspecified; F17.210 Nicotine dependence, cigarettes, uncomplicated; Z85.3 Personal history of malignant neoplasm of breast
CPT/HCPCS: 36415; 36600; 71046; 80048; 80053; 80069; 82375; 82533; 82570; 82805; 83036; 83050; 83930; 83935; 84156; 84295; 84300; 84439; 84443; 84480; 85025; 85027; 87502; 93005; 94640; 96365; 96375; 96376; 99285; A9270; C9803; G0378; J0456; J1650; J2597; J2920; J2930; J7030; J7050; J7060; J7070; J7131; J7512; U0003; U0005

== ENCOUNTER 2022-02-26 11:42 | Outpatient (CLI) | payer MEDICARE, MEDICAID, SELFPAY ==
[2022-02-26 12:35] LABS: Albumin Level 3.5 g/dL (3.5-5.1); Anion Gap 6 mmol/L (8-16); Blood Urea Nitrogen 19 mg/dL (7-17); Calcium 8.6 mg/dL (8.4-10.2); Carbon Dioxide 22 mmol/L (22-30); Chloride 106 mmol/L (98-107); Estimated Glomerular Filt Rate > 60; Glucose 94 mg/dL (65-110); Phosphorus 3.7 mg/dL (2.5-4.5); Potassium 3.7 mmol/L (3.4-5.0); Sodium 134 mmol/L (137-145)
== END 2022-02-26 11:43 | disposition home or self-care (01) ==
PROVIDERS: Visit Provider Nurse Practitioner Family
DX: E87.1 Hypo-osmolality and hyponatremia (principal)
CPT/HCPCS: 36415; 80069